=== PATIENT | female | born 2000 | race African-American/Black ===

== ENCOUNTER → 2025-04-16 | Emergency (ER) | payer BC ==
[2025-04-16 23:44] LABS: Glucose, Urine (Dipstick) Normal (Negative); Leukocyte Negative (Negative); Protein, Urine (Dipstick) Negative (Neg-Trace); Specific Gravity, Urine 1.010 (1.005-1.030)
[2025-04-16 23:51] LABS: Bacteria/HPF Rare-Few HPF (None Seen); CAUTI Indications for Culture Pelvic or flank pain; RBC/HPF 0-3 HPF (0-3); WBC/HPF 0-3 HPF (0-3)
[2025-04-16 23:52] LABS: Urine Culture Reflex No No
== END ==
LOC: CSHERS 20:34
DX: R10.30 Lower abdominal pain, unspecified (principal); Z53.29 Procedure and treatment not carried out because of patient's decision for other reasons
CPT/HCPCS: 76856; 81001